=== PATIENT | male | born 1975 | race Caucasian/White ===

== ENCOUNTER 2024-12-09 10:08 | Inpatient (IN) ==
[2024-12-03 15:31] LABS: Basophils # (Auto) 0.02 K/mcL (0.00-0.30); Basophils % (Auto) 0.2 % (0.0-2.0); Eosinophils # (Auto) 0.14 K/mcL (0.00-0.70); Eosinophils % (Auto) 1.4 % (0.0-7.0); Hematocrit 49.3 % (40.1-51.0); Hemoglobin 16.7 g/dL (13.7-17.5); Lymphocytes # (Auto) 3.63 K/mcL (1.50-4.80); Lymphocytes % (Auto) 36.9 % (15.5-49.0); Mean Cell Volume 89.3 fL (80.0-100.0); Mean Corpuscular HGB Conc 33.9 g/dL (31.0-36.0); Mean Platelet Volume 9.3 fL (8.8-12.5); Monocytes % (Auto) 8.1 % (1.0-12.0); Neutrophils % (Auto) 53.1 % (38.0-78.0); Platelet Count 197 K/mcL (140-440); RBC 5.52 M/mcL (4.63-6.08); Red Cell Distribution Width 12.6 % (11.5-14.5); WBC 9.8 K/mcL (4.5-11.0)
[2024-12-03 15:35] LABS: Appearance,Urine Clear (Clear); Bilirubin,Urine Negative (Negative); Color,Urine Yellow; Glucose,Urine (UA) Negative (Negative); Ketones,Urine Negative (Negative); Leukocyte Esterase,Urine Negative /uL (Negative); Nitrate,Urine Negative (Negative); PH,Urine 5.5 (5.0-9.0); Protein,Urine Negative (Negative); Urine Blood Negative ery/mcL (Negative); Urobilinogen,Urine Normal
[2024-12-03 15:51] LABS: Blood Urea Nitrogen 21 mg/dL (6-20); Calcium 9.6 mg/dL (8.6-10.4); Carbon Dioxide 25 mmol/L (22-30); Chloride 99 mmol/L (96-108); Glomerular Filtration Rate 99; Glucose 108 mg/dL (70-105); Potassium 4.4 mmol/L (3.3-5.1); Sodium 136 mmol/L (133-145)
[2024-12-03 19:13] LABS: Estimated Average Glucose(eAG) 126 mg/dL
[~2024-12-09 10:08] MED LIST: IPRATROPIUM/ALBUTEROL 3 ML AMPUL.NEB NEB PRN; SCOPOLAMINE 1 PATCH PATCH TOPICAL PRN
[2024-12-09] MEDS: CELECOXIB 200 MG CAPSULE PO SCH (10:16)
[2024-12-09] MEDS: oxyCODONE 10 MG TAB.ER.12H PO SCH (10:16)
[2024-12-09] MEDS: PREGABALIN 75 MG CAPSULE PO SCH (10:19)
[2024-12-09] MEDS ORDERED: LIDOCAINE 2% PF 5 ML VIAL ONE (11:56)
[2024-12-09] MEDS ORDERED: TRANEXAMIC ACID 1,000 MG/10 ML VIAL ONE (11:56)
[2024-12-09] MEDS ORDERED: ONDANSETRON 4 MG/2 ML VIAL ONE (11:56)
[2024-12-09] MEDS ORDERED: DEXAMETHASONE 10 MG/ML VIAL ONE (11:56)
[2024-12-09] MEDS ORDERED: MIDAZOLAM 2 MG/2 ML VIAL ONE (11:58)
[2024-12-09] MEDS ORDERED: PROPOFOL 200 MG/20 ML VIAL IV ONE (11:58)
[2024-12-09] MEDS ORDERED: KETAMINE 50 MG/ML ML ONE (11:59)
[2024-12-09] MEDS ORDERED: MAGNESIUM SULFATE 2 GM/50 ML BAG IV ONE (12:14)
[2024-12-09] MEDS ORDERED: ROPIVACAINE HCL/PF 30 ML VIAL IJ ONE (12:15)
[2024-12-09] MEDS: ceFAZolin 3 GM in DEXTROSE 5% IN WATER 50 ML IV SCH (12:42)
[2024-12-09] MEDS ORDERED: ePHEDrine 50 MG/5 ML SYRINGE (ANEST) IV ONE (13:08)
[2024-12-09] MEDS ORDERED: ePHEDrine 50 MG/ML AMPUL IV ONE (13:32)
[2024-12-09] MEDS: 0.9 % SODIUM CHLORIDE 9 ML, KETOROLAC 30 MG, ROPIVACAINE HCL/PF 49.5 ML, EPINEPHrine 0.... IJ SCH (13:40)
[2024-12-09] MEDS ORDERED: fentaNYL 100 MCG/2 ML VIAL IV PRN (13:54)
[2024-12-09] MEDS ORDERED: IPRATROPIUM/ALBUTEROL 3 ML AMPUL.NEB NEB PRN (13:54)
[2024-12-09] MEDS ORDERED: ONDANSETRON 4 MG/2 ML VIAL IV PRN ×2 (13:54→14:10)
[2024-12-09] MEDS ORDERED: BENZOCAINE/MENTHOL 1 LOZENGE PO PRN (14:10)
[2024-12-09] MEDS ORDERED: DEXTROSE 31 GM ORAL.SUSP PO PRN (14:10)
[2024-12-09] MEDS ORDERED: DEXTROSE 50% 50 ML VIAL IV PRN (14:10)
[2024-12-09] MEDS ORDERED: POLYETHYLENE GLYCOL 3350 17 GM PACKET PO PRN (14:10)
[2024-12-09] MEDS ORDERED: BISACODYL 10 MG SUPP.RECT PR PRN (14:10)
[2024-12-09] MEDS ORDERED: FLEETS ADULT 1 DOSE ENEMA PR PRN (14:10)
[2024-12-09] MEDS ORDERED: MAGNESIUM HYDROXIDE 30 ML ORAL.SUSP PO PRN (14:10)
[2024-12-09] MEDS: TRANEXAMIC ACID 1,000 MG/10 ML VIAL IV ONE (14:43)
[2024-12-09] MEDS: LACTATED RINGERS 1,000 ML IV SCH ×2 (15:50→15:52)
[2024-12-09] MEDS: INSULIN LISPRO 1 UNIT/0.01 ML UNIT SQ SCH (16:35)
[2024-12-09] MEDS: CARVEDILOL 12.5 MG TABLET PO SCH (16:55)
[2024-12-09] MEDS: KETOROLAC 15 MG/ML VIAL IV SCH (18:07)
[2024-12-09] MEDS: oxyCODONE IR 5 MG TABLET PO PRN (18:46)
[2024-12-09] MEDS: LISINOPRIL 5 MG TABLET PO SCH (20:29)
[2024-12-09] MEDS: OMEPRAZOLE 20 MG CAPSULE PO SCH (20:29)
[2024-12-09] MEDS: METHOCARBAMOL 500 MG TABLET PO PRN (20:30)
[2024-12-09] MEDS: ATORVASTATIN 40 MG TABLET PO SCH (20:30)
[2024-12-09] MEDS: DOCUSATE SODIUM 100 MG CAPSULE PO SCH (20:30)
[2024-12-09] MEDS: SENNOSIDES 1 TABLET PO SCH (20:30)
[2024-12-09] MEDS: ceFAZolin 1 GM VIAL IV SCH (20:37)
[2024-12-09] MEDS: 0.9 % SODIUM CHLORIDE 10 ML SYRINGE IV SCH (20:37)
[2024-12-09] MEDS ORDERED: ASPIRIN 81 MG TAB.CHEW PO SCH (21:00)
[2024-12-09] MEDS: ACETAMINOPHEN 500 MG TABLET PO SCH (21:29)
[2024-12-10] MEDS: CETIRIZINE 10 MG TABLET PO SCH (08:23)
[2024-12-10] MEDS: EZETIMIBE 10 MG TABLET PO SCH (08:23)
== END 2024-12-10 09:51 | disposition home or self-care (01) | DRG 489 ==
LOC: MEDSUR 10:08 → EDSTATUS 14:30
PROVIDERS: ADMIT Orthopaedic Surgery; ATTEND Orthopaedic Surgery